=== PATIENT | male | born 1985 | race American Indian/Alaskan Native ===

== ENCOUNTER 2019-06-06 17:21 | Emergency (ER) | payer OTHER ==
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
--- NOTE | 2019-06-06 19:51 | XRay Report ---
LEFT SHOULDER 3 VIEWS INDICATION / CLINICAL INFORMATION: shoulder pain COMPARISON: None available. FINDINGS: BONES / JOINT(S): No acute fracture or subluxation. No significant arthritis. SOFT TISSUES: No significant abnormality. ADDITIONAL FINDINGS: None. Signer Name: Anthony Albert MD Signed: 06/06/2019 7:47 PM Workstation Name: [id number]
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
[2019-06-06 21:25] VITALS: BP 101/56
== END 2019-06-06 21:22 | disposition home or self-care (01) ==
LOC: ED 17:21
DX: M25.512 Pain in left shoulder (principal); M25.562 Pain in left knee; F12.10 Cannabis abuse, uncomplicated; Z98.890 Other specified postprocedural states; Z79.899 Other long term (current) drug therapy